=== PATIENT | male | born 1965 | race Caucasian/White ===

== ENCOUNTER 2022-09-16 12:36 | Outpatient (CLI) | payer BC, SELFPAY ==
--- OUTSIDE RECORDS SUMMARY | 2022-09-16 12:39 | XMS_ITS | Clinical Summary ---
:1965 Author Organization [facility] [place] [address] Care Team Providers Name Role Phone Finesse Jacob MD Primary Care Provider [phone] Allergies Active Allergy Reactions Severity Noted Date Comments Amlodipine Headache 06/28/2015 Medications Medication Sig Dispensed Refills Start End Status Date Date aspirin (ECOTRIN) 81 mg Take 1 tablet by 180 tablet 1 09/20/20 1 Active enteric coated tablet mouth once daily 4 with a meal. CPAPIndications: MEL CPAP machine for 1 unit 0 Active (obstructive sleep apnea) home use at 6 pressure: with supplies Length of Need: 99 months, Frequency of use: Daily Insulin [place], For administering 1 box 12 Active Disposable, (PEN NEEDLE) insulin at home. 7 31 gauge x 3/16Indications: Type 2 diabetes mellitus without complication, with long-term current use of insulin (HC) blood sugar diagnostic Dispense item 100 Strip 0 Active (BLOOD GLUCOSE TEST) covered by pt 8 stripIndications: Type 2 ins. E11.65 NIDDM diabetes mellitus without type II, complication, with uncontrolled - long-term current use of Test 2 times/day insulin (HC) - Contour strips atorvastatin (LIPITOR) 20 Take 1 tablet by 90 tablet 1 01 Active mg tabletIndications: mouth once daily. 8 Hyperlipidemia, unspecified hyperlipidemia type lisinopril-hydrochlorothia Take 1 tablet by 90 tablet 1 Active zide, 20-25 mg, (PRINZIDE, mouth once daily. 8 ZESTORETIC) 20-25 mg per tabletIndications: Essential hypertension metFORMIN (GLUCOPHAGE XR) Take 4 tablets by 360 tablet 1 08/23 Active 500 mg Extended-Release mouth once daily 8 tabletIndications: Type 2 with evening diabetes mellitus without meal. complication, without long-term current use of insulin (HC) ciclopirox 0.77% cream Apply topically 0 Active (LOPROX) 0.77 % cream to affected 1 area(s) once daily if needed. Trulicity 1.5 mg/0.5 mL Inject 1.5 mg 0 Active injection subcutaneous once 1 weekly. insulin aspart Inject 90 units 0 Active protamine-insulin aspart subcutaneous in 1 (NOVOLOG MIX) 100 unit/mL the morning and (70-30) pen 75 units in the evening glimepiride (AMARYL) 4 mg Take 4 mg by 0 Active tablet mouth 2 times daily. multivitamin (MVI) tablet Take 1 Tablet by 0 Active mouth once daily. ascorbic acid, vitamin C, Take 1,000 mg by 0 Active (Vitamin C) 1,000 mg mouth once daily. tablet loratadine (CLARITIN) 10 Take 10 mg by 0 Active mg tablet mouth once daily. acetaminophen (TYLENOL Take 1,000 mg by 0 Active EXTRA STRGTH) 500 mg mouth every 6 tablet hours if needed. Max acetaminophen dose: 4000mg in 24 hrs. ibuprofen (ADVIL; MOTRIN) Take 400 mg by 0 Active 200 mg tablet mouth every 6 hours if needed. carboxymethylcellulose Place 1 Drop into 0 Active sodium (REFRESH OPHT) right eye at bedtime. escitalopram oxalate Take 2 Tablets 0 Active (LEXAPRO) 10 mg tablet (20 mg) by mouth 1 once daily. metoprolol succinate 50mg daily 30 tablet. 3 Active (TOPROL XL) 50 mg through 1 sustained-release 06/07/2021, then tabletIndications: SVT 25mg daily until (supraventricular follow up with tachycardia) (HC) Madelin Talbert NP Active Problems Problem Noted Date SVT (supraventricular tachycardia) 04/05/2021 Troponin level elevated 04/05/2021 Mixed hyperlipidemia 04/05/2021 Obesity (BMI 30-39.9) 04/05/2021 Type 2 diabetes mellitus without complication, with lo ng-term current use 09/17/2017 of insulin MEL (obstructive sleep apnea) 05/22/2016 Personal history of colonic polyps 04/10/2016 Hyperlipidemia 06/25/2015 Lumbago 02/24/2011 ED (erectile dysfunction) Resolved Problems Problem Noted Date Resolved Date Type 2 diabetes mellitus without complication 06/25/2015 09/17/2017 Hypertension 06/25/2015 08/23/2018 DM w/o complication type II 02/24/2011 06/25/2015 HTN (hypertension) 11/01/2008 06/25/2015 Immunizations Name Administration Dates Next Due Influenza, IIV3 (Age >=3 years) 09/10/2012, 08/18/2011 Influenza, IIV4 07/03/2017, 09/20/2014 Influenza, IIV4 (=>6mos) MDV 08/12/2018 Pneumococcal Poly,23-Valent (Pneumovax) 08/18/2011 Tdap 09/18/2010 Family History Medical History Relation Name Comments Cancer Brother 2 erlin Skin Cancer Other Brother 2 erlin sarcoidosis Cancer Father Melanoma of a mo le 2008 Hypertension Father Cancer-colon Maternal Grandfather age mid 70s Other Mother sarcoidosis Cancer-colon Paternal Grandfather age mid 70s Relation Name Status Comments Brother 1 Alive x2 Brother 2 erlin Father Alive Maternal Grandfather Maternal Grandmother Mother Alive Paternal Grandfather Paternal Grandmother Son Alive x2 Social History Tobacco Use Types Packs/Day Years Used Date Former Smoker Cigarettes 1 20 Quit: 02/11/20 11 Smokeless Tobacco: Never Used Tobacco Cessation: Counseling Given: Yes Comments: quit for 8 years, onset age 21 restarted 2007 Alcohol Use Standard Drinks/Week Comments Yes 1.7 (1 standard drink = 0.6 oz pure alco hol) drinks about 12 pk per week Alcohol Habits Answer Date Recorded How often do you have a drink containing Not asked alcohol? How many drinks containing alcohol do you Not asked have on a typical day when you are drinking? How often do you have six or more drinks on Not asked one occasion? Comment: drinks about 12 pk per week 11/01/2008 Sex Assigned at Date Recorded Not on file Obstetrics History Last Filed Vital Signs Vital Sign Reading Time Taken Comments Blood Pressure 131/75 05/24/2021 1:55 PM CDT Pulse 89 05/24/2021 1:55 PM CDT Temperature 35.9 ??C (96.7 ??F) 05/24/2021 10:16 AM CDT Respiratory Rate 18 05/24/2021 11:01 AM CDT Oxygen Saturation 92% 05/24/2021 1:55 PM CDT Inhaled Oxygen Concentration - - Weight 127.7 kg (281 lb 9.6 oz) 05/24/2021 6:00 AM CDT Height 182.9 cm (6') 05/24/2021 6:00 AM CDT Body Mass Index 38.19 05/24/2021 6:00 AM CDT Plan of Treatment Health Maintenance Due Date Last Done Comments Pneumococcal series for age 19-64 08/18/2012 08/18/2011 (2 - PCV) Zoster (shingles) series for age 0503/07/2016 50+ (1 of 2) BMI (ht and wt on same day) for 08/20/2019 08/20/2018, 03/27, age 18+ 11/09/2017, Additional history exists Depression screening for age 12+ 08/20/2019 08/20/2018, , 03/04/2017 Tetanus booster 09/18/2020 09/18/2010 Colonoscopy through age 75 03/31/2021 03/31/2016, 6 COVID-19 vaccine series (3 - 04/17/2021 02/20/2021, 021 Booster for Moderna series) Influenza for age 50-64 06/26/2022 08/12/2018, 07/03/2017, 09/20/2014, Additional history exists Lipids for age 45-75 04/16/2023 04/16/2018, 03/04/2017, 02/19/2016, Additional history exists Tdap Completed 09/18/2010 Hepatitis C screening for age Completed 08/18/2011 18-79 Goals Goal Patient Goal Associated Recent Patient-Stated? Author Type Problems Progress BLOOD PRESSURE Blood Pressure No James chavez, - MAINTAINS BP Finesse less than MD Winston 140/90 Results Not on filefrom Last 3 Months Insurance Payer Benefit Plan / Subscriber ID Effective Dates Phone Addre ss Type Group [employer] OF [id number] 2017-Present [address] [place] [address] [employer] OF [id number] 2014-Present [address] [place] [address] Svetlana Carl Personal/Family Spouse [address] (Home) [place] [id number] Advance Directives Latest Code Status on File Code Status Date Activated Date Inactivated Comments Full Code 04/04/2021 9:56 PM 04/05/2021 3:46 PM Code Status Discussion: Discussed Full Code 11/08/2014 10:48 AM 11/08/2014 1:45 PM Full Code 11/08/2014 9:52 AM 11/08/2014 10:48 AM Care Teams Building Tech Relationship Specialty Start Date End Date Finesse Jacob MD PCP - General Family Practice 06/14/151999 [place] [address]
[2022-09-16 14:25] LABS: SARS PCR* POSITIVE SARS-CoV-2 (Negative)
== END 2022-09-16 12:37 | disposition home or self-care (01) ==
LOC: FBOREF 12:37
PROVIDERS: PCP Family Medicine; Visit Provider Family Medicine
DX: U07.1 COVID-19 (principal); R05.9 Cough, unspecified; J02.9 Acute pharyngitis, unspecified
CPT/HCPCS: 87635

== ENCOUNTER 2022-09-16 18:45 | Outpatient (CLI) | payer BC, SELFPAY ==
--- OUTSIDE RECORDS SUMMARY | 2022-09-16 18:48 | XMS_ITS | Clinical Summary ---
:1965 Author Organization [employer] [facility] [employer] [facility] [place] [address] Care Team Providers Name Role Phone Finesse Jacob MD Primary Care Provider [phone] Allergies Active Allergy Reactions Severity Noted [...] 99 months, Frequency of use: Daily Insulin [place], For administering 1 box 12 Active Disposable, [...] Type Group [employer]OSS [employer] OF [id number] 2017-Present [address] [place] [address] [employer] OF [id number] 2014-Present [address] [place] [address] Svetlana Carl Personal/Family Spouse [address] (Home) [place] [address] Advance Directives Latest Code Status on File Code Status Date Activated Date Inactivated Comments Full Code 04/04/2021 9:56 PM 04/05/2021 3:46 PM Code Status Discussion: Discussed Full Code 11/08/2014 10:48 AM 11/08/2014 1:45 PM Full Code 11/08/2014 9:52 AM 11/08/2014 10:48 AM Care Teams Humanities Professor Relationship Specialty Start Date End Date Finesse Jcaob MD PCP - General Family Practice 06/14/151999 [place] [address]
[2022-09-17 01:14] LABS: Lab Add On Test New Spec Needed
[2022-09-17 15:31] LABS: Chloride* 100 mmol/L (96-114); Potassium* 5.5 mmol/L (3.6-5.1); Sodium* 137 mmol/L (135-149)
[2022-09-17 15:34] LABS: Carbon Dioxide* 28 mmol/L (20-32); Creatinine* 0.8 mg/dL (0.5-1.5); Estimated Glomerular Filt Rate 104 ml/min
[2022-09-17 15:35] LABS: Blood Urea Nitrogen* 16 mg/dL (7-30); Calcium* 9.6 mg/dL (8.4-10.6); Glucose* 345 mg/dL (60-115)
== END 2022-09-16 18:46 | disposition home or self-care (01) ==
LOC: NFLDREF 18:46
PROVIDERS: PCP Family Medicine; Visit Provider Family Medicine
DX: I10 Essential (primary) hypertension (principal)
CPT/HCPCS: 80048

== ENCOUNTER 2022-12-29 14:41 | Outpatient (CLI) | payer BC, SELFPAY ==
[2022-12-29 17:54] LABS: Uric Acid* 4.7 mg/dL (2.2-8.4)
[2023-01-01 05:56] LABS: Rheumatoid Factor <10 IU/mL (0-14)
[2023-01-01 08:39] LABS: Anti-Nuclear Ab(ANA)IgG ELISA None Detected (None Detected)
== END 2022-12-29 14:42 | disposition home or self-care (01) ==
PROVIDERS: PCP Family Medicine; Visit Provider Family Medicine
DX: M25.50 Pain in unspecified joint (principal)
CPT/HCPCS: 84550; 86039; 86140; 86431; 86618

== ENCOUNTER 2023-04-14 12:34 | Outpatient (CLI) | payer BC, SELFPAY ==
--- OUTSIDE RECORDS SUMMARY | 2023-04-14 12:36 | XMS_ITS | Continuity of Care Document ---
Author Name Unknown Organization [facility] Address [address] [place] [address] Phone Care Team Providers Care Facilities Painter Name Role Phone Rosangela De La Rosa Unavailable Unavailable Allergies, Adverse Reactions, Alerts Substance Reaction Status Criticality No Known Allergies Active No Inform ation Medications Medication Instructions Dosage Effective Dates (start - stop) Status Comments JANUVIA (unknown strength) Not Available - Active RIOMET (unknown strength) Not Available - Active GLIMEPIRIDE (unknown strength) Not Available - Active LISINOPRIL-HYDROCHLOROT HIAZIDE (unknown strength) Not Available - Active ATORVASTATIN CALCIUM (unknown strength) Not Available - Active DURLAZA (unknown strength) Not Available - Active IBUPROFEN (unknown strength) Not Available - Active MAPAP (unknown strength) Not Available - Active Procedures Procedure Date Office/Outpatient Visit,[facility] 2015 X-Ray Exam Lwr Spine, Min 4 Views Advance Directives Directive Yes / No Effective Date File Name No Information Encounters Encounter Description Practice Location Reason(s) For Visit Diagnoses Date Provider Providers Copied on Encounter Office/Outpat ient Visit,New, [facility], [address], [place], [place], [id number], [place] tel:[phone] [facility] Other spondylosis, lumbar regionSpinal stenosis, lumbar region Rafa Adames. [facility], [address], [place], [address], [place]. tel:[phone] Referring Provider: Finesse Jacob, [facility] [address], [address]. tel:[phone] Family History Family Member Type Diagnosis Age At Onset Problem (finding) Problem (finding) Problem (finding) Problem (finding) Problem (finding) Problem (finding) Problem (finding) Problem (finding) Payers Payer name Insurance type Covered [id number] [facility] [id number] Social History Type Description Quantity Date Captured Comments Alcohol Use Details Caffeine Use Details Tobacco Use Status Smoking Status Former smoker Non-Smoking Tobacco Use Details : No Details Available chewing: No Details Available : No Details Available chewing: No Details Available Sex Male Chief Complaint And Reason For Visit No Information Reason For Referral Reason For Referral No Information Plan Of Treatment Date Type Action Status Future Order: Radiology Order AP /Lat/Flex/Ext Lumb (APLatFlExL), Ordered on: Ordered History Of Present Illness Encounter Date Complaint History Of Prese nt Illness No Information Functional Status Date Functional Assessmen t No Information Instructions Date Instruction Additional Infor mation No Information Assessments Type Assessment Date No Information Patient Care Teams Name Effective Dates (start - stop) Status Members No Information
[2023-04-14 14:10] LABS: Chloride* 99 mmol/L (96-114); Sodium* 135 mmol/L (135-149)
[2023-04-14 14:11] LABS: Potassium* 4.5 mmol/L (3.6-5.1)
[2023-04-14 14:13] LABS: Carbon Dioxide* 30 mmol/L (20-32); Cholesterol* 205 mg/dL (90-199); Creatinine* 0.7 mg/dL (0.5-1.5); Estimated Glomerular Filt Rate 107 ml/min
[2023-04-14 14:14] LABS: Blood Urea Nitrogen* 15 mg/dL (7-30); Calcium* 9.5 mg/dL (8.4-10.6); Glucose* 99 mg/dL (60-115); HDL Cholesterol* 36 mg/dL (>=40); LDL Cholesterol Calculated 131 mg/dL (<100); Triglycerides* 189 mg/dL (40-149)
== END 2023-04-14 12:35 | disposition home or self-care (01) ==
PROVIDERS: PCP Family Medicine; Visit Provider Family Medicine
DX: I10 Essential (primary) hypertension (principal); E78.5 Hyperlipidemia, unspecified
CPT/HCPCS: 80048; 80061